=== PATIENT | male | born 1990 | race Caucasian/White ===

== ENCOUNTER 2024-06-14 09:12 | Day surgery (SDC) | payer OTHER ==
[~2024-06-14] VITALS: Ht 175.3 cm; Wt 87.4 kg
[~2024-06-14 09:12] MED LIST: Ondansetron 4 MG/2 ML VIAL IV PRN
[2024-06-14] MEDS ORDERED: LR 1,000 ML IV SCH (09:15)
[2024-06-14] MEDS ORDERED: CIALIS5 MG PO (09:39)
[2024-06-14] MEDS ORDERED: STRATTERA 40MG40 MG PO (09:39)
[2024-06-14] MEDS ORDERED: MINOXIDIL 2.5 PO (09:40)
[2024-06-14] MEDS ORDERED: IMITREX ST6 MG/0.51 (09:40)
[2024-06-14] MEDS ORDERED: AVODART 0.5MG0.5 MG PO (09:41)
[2024-06-14 10:06] VITALS: BP 111/82; PULSE 56; TEMP 97.3
[2024-06-14] MEDS ORDERED: Lidocaine PF 2% (20 MG/ML) 5 ML VIAL ONE (10:56)
[2024-06-14 11:35] VITALS: BP 106/78; PULSE 68
[2024-06-14 11:50] VITALS: BP 113/81; PULSE 75
[2024-06-14 12:05] VITALS: BP 109/96; PULSE 70
--- NOTE | 2024-06-14 16:18 | NUR ---
1135 PATIENT RETURNS TO [facility] [place] VIA CART. PT AWAKE AND ALERT. RESPIRATIONS UNLABORED. AMBULATED TO RECLINER CHAIR WITH 2:1 SBA. PT DENIES NAUSEA OR ABDOMINAL PAIN. HOOKED UP TO MONITOR AND VS OBTAINED. CALL LIGHT AT SIDE AND PRESENT. 1145 PATIENT TOLERATING COFFEE AND MUFFIN, CHEESE, CRACKERS, CHOCOLATE PUDDING WITHOUT NAUSEA OR DIFFICULTY SWALLOWING. 1200 IN ROOM SPEAKING WITH PATIENT. 1215 D/C INSTRUCTIONS REVIEWED WITH PATIENT. PT VERBALIZED UNDERSTANDING AND A COPY OF INSTRUCTIONS PROVIDED IN D/C FOLDER. PATIENT DRESSES SELF. PATIENT DISCHARGED FROM UNIT VIA W/C TO A PERSONAL VEHICLE. PT LEFT HOSPITAL IN STABLE CONDITION.
== END 2024-06-14 12:15 | disposition home or self-care (01) ==
LOC: SDCO 09:12
DX: K21.01 Gastro-esophageal reflux disease with esophagitis, with bleeding (principal); K29.51 Unspecified chronic gastritis with bleeding; K44.9 Diaphragmatic hernia without obstruction or gangrene; K29.81 Duodenitis with bleeding; G47.33 Obstructive sleep apnea (adult) (pediatric)
CPT/HCPCS: J2704; J7120